=== PATIENT | male | born 1935 | race Caucasian/White ===

== ENCOUNTER 2020-12-30 19:35 | Emergency (ER) | payer MEDICARE, BC ==
[2020-12-30] MEDS ORDERED: Aspirin 81 MG Tab.Chew PO ONE (19:54)
--- NOTE | 2020-12-30 19:54 | EDM.PDOC ---
ED HPI GENERAL MEDICAL PROBLEM - General Chief Complaint: Chest Pain Stated Complaint: CHEST PAIN Time Seen by Provider: 12/30/20 19:35 Source of Information: Reports: Patient History Limitations: Reports: No Limitations - History of Present Illness INITIAL COMMENTS - FREE TEXT/NARRATIVE: 85-year-old male arrives with chest pain for the past 5 hours. He went golfing this morning and had no issues, had a erika after golfing and went home. Developed substernal chest pain across the anterior chest without radiation which has been present for the past 5 hours. Did have a period of diaphoresis but no nausea or vomiting, no shortness of breath. No pain with breathing. He tried a nitroglycerin without relief. Onset: Sudden Duration: Hour(s): (5 hours ago) Location: Reports: Chest (Across his anterior chest) Quality: Reports: Ache, Pressure Improves with: Reports: None (Nitroglycerin had no effect, antacid had minimal effect) Worsens with: Reports: None Associated Symptoms: Reports: Chest Pain, Diaphoresis. Denies: Cough, Fever/Chills, Loss of Appetite, Malaise, Nausea/Vomiting, Shortness of Breath, Weakness Chest Pain Score (Numeric/FACES): 7 - Related Data Allergies Allergy/AdvReac Type Severity Reaction Status Date / Time contrast dye Allergy Vomiting Uncoded 12/30/20 19:45 Home Meds: Home Meds Acetaminophen [Tylenol Extra Strength] 1,000 mg PO DAILY 12/30/20 [History] Aspirin 81 mg PO DAILY 12/30/20 [History] Clopidogrel [Plavix] 75 mg PO DAILY 12/30/20 [History] Dulaglutide [Trulicity] 1.5 mg IM WEEKLY 12/30/20 [History] Isosorbide Mononitrate [Ismo] 0 mg PO DAILY 12/30/20 [History] Lisinopril/Hydrochlorothiazide [Lisinopril-Hctz 20-25 mg Tab] 1 dose PO DAILY 12/30/20 [History] Rosuvastatin [Crestor] 0 mg PO BEDTIME 12/30/20 [History] Tamsulosin [Flomax] 0.4 mg PO DAILY 12/30/20 [History] amLODIPine [Norvasc] 0 mg PO DAILY 12/30/20 [History] carvediloL [Carvedilol] 0 mg PO DAILY 12/30/20 [History] lisinopriL [Prinivil] 20 mg PO BEDTIME 12/30/20 [History] metFORMIN [Glucophage] 1,000 mg PO BID 12/30/20 [History] Social & Family History - Tobacco Use Tobacco Use Status *Q: Never Tobacco User - Caffeine Use Caffeine Use: Reports: Coffee - Alcohol Use Days Per Week of Alcohol Use: 4 Number of Drinks Per Day: 1 Total Drinks Per Week: 4 - Recreational Drug Use Recreational Drug Use: No ED ROS GENERAL - Review of Systems Review Of Systems: See Below Constitutional: Denies: Fever, Chills, Malaise, Decreased Appetite HEENT: Reports: No Symptoms. Denies: Vision Change Respiratory: Denies: Shortness of Breath Cardiovascular: Reports: Chest Pain, Other (Significant cardiac history, has had stents, recent stress test 6 months ago was unremarkable). Denies: Dyspnea on Exertion, Lightheadedness, Palpitations Endocrine: Denies: Fatigue GI/Abdominal: Denies: Abdominal Pain, Nausea, Vomiting : Reports: No Symptoms Musculoskeletal: Reports: Other (History of spinal stenosis, chronic pain) Skin: Reports: Diaphoresis (Diaphoresis earlier, resolved) Neurological: Reports: No Symptoms ED EXAM, GENERAL - Physical Exam Exam: See Below Exam Limited By: No Limitations General Appearance: Alert, No Apparent Distress Eye Exam: Bilateral Eye: Normal Inspection Head: Atraumatic Neck: Non-Tender Respiratory/Chest: Lungs Clear, Other (I cannot reproduce chest pain with palpation of the chest wall) Cardiovascular: Regular Rate, Rhythm. No: Tachycardia, Extra Beats GI/Abdominal: Soft, Non-Tender Extremities: Normal Inspection. 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 Course - Vital Signs Last Recorded V/S: Last Vital Signs Temp 97.8 F 12/30/20 19:56 Pulse 79 12/30/20 20:49 Resp 16 12/30/20 20:49 BP 160/64 H 12/30/20 20:49 Pulse Ox 94 L 12/30/20 20:49 - Orders/Labs/Meds Orders: Active Orders 24 hr Category Date Time Status EKG 12 Lead [EK] Routine Ther 12/30/20 19:53 Ordered Labs: Laboratory Tests 12/30/20 12/30/20 12/30/20 Range/Units 20:00 20:00 20:00 WBC 8.0 (4.5-11.0) K/uL RBC 4.37 (4.30-5.90) M/uL Hgb 12.5 (12.0-15.0) g/dL Hct 38.5 L (40.0-54.0) % MCV 88 (80-98) fL MCH 29 (27-31) pg MCHC 33 (32-36) % Plt Count 256 (150-400) K/uL Neut % (Auto) 73.8 H (36-66) % Lymph % (Auto) 12.6 L (24-44) % [place] % (Auto) 10.8 H (2-6) % Eos % (Auto) 2.3 (2-4) % Baso % (Auto) 0.5 (0-1) % Sodium 143 (140-148) mmol/L Potassium 3.7 (3.6-5.2) mmol/L Chloride 106 (100-108) mmol/L Carbon Dioxide 21 (21-32) mmol/L Anion Gap 15.6 H (5.0-14.0) mmol/L BUN 28 H (7-18) mg/dL Creatinine 1.7 H (0.8-1.3) mg/dL Est Cr Clr Drug Dosing 31.19 mL/min Estimated GFR (MDRD) 38 L (>60) Glucose 259 H (74-106) mg/dL Calcium 8.8 (8.5-10.1) mg/dL Troponin I < 0.017 (0.000-0.056) ng/mL Meds: Medications Discontinued Medications Generic Name Dose Route Start Last Admin Trade Name Freq PRN Reason Stop Dose Admin Aspirin 324 mg 12/30/20 19:54 12/30/20 19:58 Aspirin 81 Mg Tab.Chew PO 12/30/20 19:55 324 mg ONETIME ONE Administration - Re-Assessments/Exams Free Text/Narrative Re-Assessment/Exam: 12/30/20 20:23 EKG showed no acute findings, the possibility of an old anteroseptal infarct was evident. Patient was given 324 mg of chewable aspirin, however his pain was already almost gone. No further treatment was given pending labs. CBC BMP and troponin were obtained. Patient was continued on cardiac monitoring and remained stable. 12/30/20 20:43 Patient remained comfortable and asymptomatic while in the emergency room, CBC was normal, BMP showed some renal insufficiency but troponin is 0. This likely was a GI source of discomfort. Patient will be discharged and informed to follow a bland diet for the next couple of days, avoid alcohol, and increase activity as tolerated and return if worsening. Departure - Departure Time of Disposition: 21:09 Disposition: Home, Self-Care 01 Clinical Impression: Atypical chest pain - Discharge Information Instructions: Nonspecific Chest Pain, Adult, [id number] Referrals: PCP,None [Primary Care Provider] - Forms: ED Department Discharge Care Plan Goals: A bland diet for the next few days, avoid any alcohol for the next 24 hours and an antacid may be helpful. Activity as tolerated and return anytime if symptoms are worsening or you develop other concerns. Sepsis Event Note (ED) - Evaluation Sepsis Screening Result: No Definite Risk - Focused Exam Vital Signs: Vital Signs Temp Pulse Resp BP Pulse Ox 12/30/20 20:49 79 16 160/64 H 94 L 12/30/20 20:14 82 15 139/64 93 L 12/30/20 19:56 97.8 F 89 14 195/74 H 95 12/30/20 19:43 97.8 F 89 14 195/74 H 95 - My Orders Last 24 Hours: My Active Orders 12/30/20 19:53 EKG 12 Lead [EK] Routine - Assessment/Plan Last 24 Hours: My Active Orders 12/30/20 19:53 EKG 12 Lead [EK] Routine
== END 2020-12-30 21:09 | disposition home or self-care (01) ==
LOC: JP.ED 19:35
DX: R07.89 Other chest pain (principal); Z91.041 Radiographic dye allergy status; Z79.82 Long term (current) use of aspirin; Z79.02 Long term (current) use of antithrombotics/antiplatelets; Z79.84 Long term (current) use of oral hypoglycemic drugs; Z79.899 Other long term (current) drug therapy
CPT/HCPCS: 36415; 80048; 84484; 85025; 93005; 99285; A9270